=== PATIENT | female | born 1985 | race Caucasian/White ===

== ENCOUNTER → 2020-06-20 15:37 | Outpatient (CLI) | payer OTHER, SELFPAY ==
--- NOTE | 2020-06-20 15:41 | DI.MRI.S_ITS ---
PROCEDURE: MR CERVICAL SPINE WO CON INDICATIONS: Right sided neck and shoulder pain TECHNIQUE: Noncontrast sagittal T1 spin echo and T2 fast spin echo, sagittal STIR, foraminal oblique sagittal T2 fast spin echo, and axial gradient echo or T2 fast spin echo through the cervical spine. COMPARISON: None. FINDINGS: Image quality: Excellent. Alignment and Curvature: There is slight reversal of normal cervical curvature with apex at C5-6. Bone Marrow: Marrow demonstrates normal overall signal. There is a mild appearance of increased T1 signal at C6 suggestive of small hemangioma. Spinal Cord: Visualized spinal cord has normal size and signal. No cerebellar tonsillar herniation. Paraspinous Soft Tissues: No paravertebral masses. Prevertebral soft tissues are normal in thickness. Discs: Moderate to severe disc desiccation is present from C4-5 through C6-7. C2-C3: Minimal disc bulge without spinal stenosis or foraminal narrowing. C3-C4: Minimal disc bulge without spinal stenosis or foraminal narrowing. C4-C5: Mild disc bulge with moderate spinal stenosis. No foraminal narrowing. C5-C6: Mild disc bulge with superimposed posterior central protrusion. There is severe spinal stenosis with compression of the canal. Mild bilateral foraminal narrowing. C6-C7: Mild disc bulge with severe spinal stenosis and canal compression. There is a right asymmetric component of the disc bulge causing compromise of the right lateral recess and proximal right foramina. Overall mild to moderate right and mild left foraminal narrowing is present. C7-T1: No disc bulge, spinal stenosis or foraminal narrowing. IMPRESSION: 1. Multilevel degenerative changes most severe at C5-6 and C6-7 demonstrating disc bulges with severe spinal stenosis. Dictated by: Asia Mccabe M.D. on 06/20/2020 at 16:49 Approved by: Asia Mccabe M.D. on 06/20/2020 at 17:16
--- NOTE | 2020-06-20 15:41 | DI.MRI.S_ITS ---
PROCEDURE: MR LUMBAR SPINE WO CON INDICATIONS: Right sided low back pain TECHNIQUE: Noncontrast sagittal T1 spin echo and T2 fast echo, sagittal STIR, axial T1 and T2 fast spin echo through the lumbar spine. In cases with scoliosis, additional coronal T2 fast spin echo may be performed. COMPARISON: None. FINDINGS: Normal lumbar vertebral body height and alignment. No suspicious focal marrow signal abnormality. Discogenic marrow edema at the opposing L3-L4 endplates. Periarticular marrow edema in association with facet osteoarthropathy from L3-L4 through L5-S1. Normal position and appearance of the conus. Prevertebral and paraspinous soft tissues are within normal limits. The included unenhanced retroperitoneal visceral structures demonstrate no acute abnormality. Throughout the lumbar spine there is congenital shortening of the pedicles. This produces a baseline AP narrowing of the neural foramina and spinal canal at each level, exacerbating the mass effect due to superimposed degenerative changes. T12-L1: No spinal canal or neural foraminal stenosis. L1-L2: Disc bulge flattens the ventral thecal sac. Disc material abuts and may slightly displace the descending right L2 nerve root within the right subarticular zone. Foraminal components of the disc bulge and facet hypertrophy produce mild neural foraminal narrowing in conjunction with congenital shortening of the pedicles. L2-L3: Diffuse disc bulge and a superimposed broad-based posterior disc protrusion. Facet hypertrophy and buckling of the ligamentum flavum. These factors combined with congenital shortening of the pedicles to produce moderate spinal canal and bilateral neural foraminal stenosis. L3-L4: Diffuse disc bulge and a superimposed broad-based posterior disc protrusion with displacement of the descending L4 nerve roots in both subarticular zones. Bulky facet hypertrophy and buckling of the ligamentum flavum. These factors combine to produce moderate right and mild left neural foraminal stenosis. L4-L5: Probable impingement upon the descending right L5 nerve root within the right subarticular zone (series 8, image 14) due to disc bulge and superimposed extrusion. Moderate right and mild left neural foraminal stenosis due to spondylitic and spinal arthropathic changes. L5-S1: Disc bulge without significant mass effect upon the S1 nerve roots. No neural foraminal stenosis. IMPRESSION: Multilevel multifactorial degenerative changes. Suspected impingement of the descending right L5 nerve roots at the L4-L5 level. Moderate spinal canal stenosis and neural foraminal stenosis at L2-L3. 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 Dictated by: Federico Clark M.D. on 06/21/2020 at 9:35 Approved by: Federico Clark M.D. on 06/21/2020 at 9:48
== END ==
PROVIDERS: PCP Family Medicine; Referring Provider Family Medicine; Visit Provider Family Medicine
DX: M50.122 Cervical disc disorder at C5-C6 level with radiculopathy (principal); M48.02 Spinal stenosis, cervical region; M25.511 Pain in right shoulder; M47.26 Other spondylosis with radiculopathy, lumbar region; M48.061 Spinal stenosis, lumbar region without neurogenic claudication
CPT/HCPCS: 72141; 72148

== ENCOUNTER 2020-10-04 15:37 | Emergency (ER) | payer OTHER, SELFPAY ==
[2020-10-04 15:47] VITALS: BP 188/99; PULSE 61; RESP 16; TEMP 36.4; O2SAT 97; BMI 29.0
--- NOTE | 2020-10-04 16:01 | DI.CT.S_ITS ---
PROCEDURE: CT CERVICAL SPINE WO CON INDICATIONS: injury s/p cervical neck surgery TECHNIQUE: Noncontrast 3 mm thick sections acquired from the skull base to the T4 level. Sagittal and coronal reformats were then constructed. For radiation dose reduction, the following was used: automated exposure control, adjustment of mA and/or kV according to patient size. COMPARISON: [facility], , MR CERVICAL SPINE WO CON, 06/20/2020, 16:03. FINDINGS: Image quality: Excellent. Bones: No fractures or dislocations. Visualized superior ribs are intact. Prosthetic discs are noted at C5-6 and C6-7. Hardware is intact. It is noted that the prosthetic disc at C5-6 extends beyond the margin of the superior endplate at C6 by 4 mm and 2 mm at C6-7. No priors are available for comparison. There is overall straightening of normal cervical curvature. Soft tissues: Prevertebral soft tissues are normal in thickness. No paravertebral hematomas. No apical pneumothoraces. IMPRESSION: 1. Postsurgical changes as above. 2. No visualized acute osseous abnormality. Dictated by: Asia Mccabe M.D. on 10/04/2020 at 16:23 Approved by: Asia Mccabe M.D. on 10/04/2020 at 16:27
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
[2020-10-04 18:32] VITALS: BP 156/88; PULSE 65; RESP 18
== END 2020-10-04 19:00 | disposition home or self-care (01) ==
PROVIDERS: Emergency Provider Emergency Medicine; PCP Family Medicine
DX: S16.1XXA Strain of muscle, fascia and tendon at neck level, initial encounter (principal); V89.2XXA Person injured in unspecified motor-vehicle accident, traffic, initial encounter
CPT/HCPCS: 72125; 99283; 99284

== ENCOUNTER → 2020-12-05 09:43 | Outpatient (CLI) | payer OTHER, SELFPAY ==
--- NOTE | 2020-12-05 | DI.RAD.S_ITS ---
PROCEDURE: XR CERVICAL SPINE 2V OR 3V INDICATIONS: radiculopathy, cervical region TECHNIQUE: 3 view(s) of the cervical spine were acquired. COMPARISON: [facility], CT, CT CERVICAL SPINE WO [facility], 10/04/2020, 16:08. [facility], MR, MR CERVICAL SPINE WO [facility], 06/20/2020, 16:03. FINDINGS: Bones: No fractures or dislocations to the T1 level. The lateral masses of C1 appear intact on the odontoid view. No suspicious bony lesions. Loss of lordosis which could be related to muscle spasm, rigidity or simply positional. Prosthetic intervertebral disc spacers again seen at the C5-C6 and C6-C7 levels and it is again noted at the prosthetic spacer at the C5-6 level extends beyond the margin of the superior endplate of C6 by roughly 4 mm and 3 mm at the C6-C7 level. Findings appear similar to prior CT scan dated 10/04/2020. Soft tissues: No prevertebral soft tissue swelling. IMPRESSION: 1. Loss of lordosis. 2. Postsurgical changes as above. Dictated by: Esau Tyler [facility] Interpreted: Demetrius Reis MD on 12/05/2020 at 10:13 Transcribed by: FOSTER on 12/05/2020 at 10:19 Approved by: Reynaldo Rivas M.D. on 12/06/2020 at 13:35
== END ==
PROVIDERS: PCP Family Medicine; Referring Provider Family Medicine; Visit Provider Orthopaedic Surgery
DX: M54.12 Radiculopathy, cervical region (principal)
CPT/HCPCS: 72040

== ENCOUNTER → 2021-03-30 17:34 | Outpatient (CLI) | payer OTHER, SELFPAY ==
--- NOTE | 2021-03-30 | DI.MRI.S_ITS ---
PROCEDURE: MR CERVICAL SPINE WO CON INDICATIONS: spinal stenosis, cervical region TECHNIQUE: Noncontrast sagittal T1 spin echo and T2 fast spin echo, sagittal STIR, foraminal oblique sagittal T2 fast spin echo, and axial gradient echo or T2 fast spin echo through the cervical spine. COMPARISON: [facility], MR, MR CERVICAL SPINE WO CON, 06/20/2020, 16:03. [facility], CR, XR CERVICAL SPINE 2V OR 3V, 12/05/2020, 9:50. [facility], CT, CT CERVICAL SPINE WO CON, 10/04/2020, 16:08. FINDINGS: Postsurgical changes of disc replacement at C5-C6 and C6-C7. The hardware is not ideally evaluated with MRI due to susceptibility artifact. Nonetheless, the inferred position of the hardware due to the presence of the created signal is suggestive that the hardware has migrated anteriorly when compared with the prior study at both the C5-C6 and C6-C7 levels. Straightening of the usual cervical lordosis with otherwise normal alignment. Vertebral body heights maintained. No marrow edema or suspicious focal marrow signal abnormality. There is increased T2 signal of the cord at the C5-C6 and C6-C7 levels (series 5, image 8 for example). The findings are new when compared with 06/20/2020 study. Otherwise normal cord signal. There is no syrinx. There is fluid in the prevertebral soft tissues seen best on sagittal T2 and fat suppressed images. Posterior paraspinous soft tissues are normal. C2-C3: No spinal canal or neural foraminal stenosis. C3-C4: No spinal canal or neural foraminal stenosis. C4-C5: Moderate spinal canal stenosis due to posterior disc osteophyte complex. Flattening of the ventral cord and posterior displacement of the cord with near complete effacement of CSF surrounding the cord. No cord signal abnormality. Mild bilateral neural foraminal narrowing. C5-C6: Moderate to severe spinal canal stenosis with flattening of both the ventral and dorsal cord contours and near complete effacement of CSF surrounding the cord. Associated cord signal abnormality. Moderate bilateral neural foraminal stenosis. C6-C7: Severe spinal canal stenosis with flattening of the ventral and dorsal cord contours and near complete effacement of CSF surrounding the cord. Associated cord signal abnormality. Moderate bilateral neural foraminal stenosis. C7-T1: No spinal canal or or neural foraminal stenosis. IMPRESSION: Limited evaluation the hardware due to susceptibility artifact. Within this limitation, suggestion of possible hardware migration when compared with October 04, 2020 and 12/05/2020 examinations. A follow-up CT to better evaluate the hardware is recommended. 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 Moderate spinal canal stenosis at C4-C5. Varying degrees of neural foraminal stenosis up to moderate. Dictated by: Federico Clark M.D. on 04/01/2021 at 10:34 Approved by: Federico Clark M.D. on 04/01/2021 at 10:42
== END ==
PROVIDERS: PCP Family Medicine; Referring Provider Family Medicine; Visit Provider Family Medicine
DX: M48.02 Spinal stenosis, cervical region (principal); M54.12 Radiculopathy, cervical region; R42 Dizziness and giddiness; Z98.890 Other specified postprocedural states
CPT/HCPCS: 72141

== ENCOUNTER → 2021-12-16 09:08 | Outpatient (CLI) | payer OTHER, SELFPAY ==
--- NOTE | 2021-12-16 09:10 | DI.MRI.S_ITS ---
PROCEDURE: MR LUMBAR SPINE WO CON INDICATIONS: spinal stenosis/radiculopathy/hx of spinal surgery TECHNIQUE: Noncontrast sagittal T1 spin echo and T2 fast echo, sagittal STIR, and T2 fast spin echo through the lumbar spine. In cases with scoliosis, additional coronal T2 fast spin echo may be performed. COMPARISON: [facility], MR, MR LUMBAR SPINE WO CON, 06/20/2020, 16:30. FINDINGS: Image quality: Excellent. Alignment and Curvature: There is normal bony alignment. Bone Marrow: Marrow is of normal overall signal. No acute vertebral body compression fractures. Spinal Cord: Conus medullaris terminates at the L1 level. Visualized cord demonstrates normal signal and size. Paraspinous Soft Tissues: No paravertebral masses. T12-L1: No significant disc bulge. The foramina and central canal are patent. L1-L2: No significant disc bulge. The foramina and central canal are patent. L2-L3: The disc is narrowed and desiccated. There is a diffuse disc bulge and facet hypertrophy causing mild right and moderate left foraminal stenosis. The central canal has moderate stenosis. L3-L4: The disc is narrowed and desiccated. There is a diffuse disc bulge and facet hypertrophy which causes severe right and moderate left foraminal stenosis. The central canal has mild stenosis. L4-L5: The disc is narrowed and desiccated. There is a diffuse disc bulge and facet hypertrophy which causes severe right and moderate left foraminal stenosis. The central canal has mild stenosis. L5-S1: No significant disc bulge. The foramina and central canal are patent. IMPRESSION: 1. Multilevel lumbar spondylosis causing foraminal and central canal stenosis as detailed above. 2. No abnormal cord signal. Dictated by: Jomar Reis M.D. on 12/17/2021 at 8:28 Approved by: Jomar Reis M.D. on 12/17/2021 at 8:33
--- NOTE | 2021-12-16 09:10 | DI.MRI.S_ITS ---
PROCEDURE: MR THORACIC SPINE WO CON INDICATIONS: spinal stenosis/radiculopathy/hx of spinal surgery TECHNIQUE: Noncontrast sagittal T1 spine echo and T2 fast spin echo, sagittal STIR, and T2 fast spin echo through the thoracic spine. COMPARISON: None. FINDINGS: Image quality: Excellent. Alignment and Curvature: There is normal bony alignment. Bone Marrow: Marrow is of normal overall signal. No acute vertebral body compression fractures. Spinal Cord: Visualized spinal cord is normal in size and signal. Discs: T2-3 has a right foraminal protrusion causing moderate right foraminal stenosis. T4-5 and T6-7 have diffuse disc bulges with no foraminal or central canal stenosis. T10-11 and T11-12 have facet hypertrophy causing mild and moderate bilateral foraminal stenosis, respectively. Paraspinous Soft Tissues: No paravertebral masses. Miscellaneous: On axial images, central canal and foramina appear widely patent at all scanned levels. IMPRESSION: 1. Multilevel thoracic spondylosis with foraminal stenosis as detailed above. 2. No significant central canal stenosis. 3. No abnormal cord signal. Dictated by: Jomar Reis M.D. on 12/17/2021 at 7:57 Approved by: Jomar Reis M.D. on 12/17/2021 at 8:17
--- NOTE | 2021-12-16 09:11 | DI.MRI.S_ITS ---
PROCEDURE: MR CERVICAL SPINE WO CON INDICATIONS: spinal stenosis/radiculopathy/hx of spinal surgery TECHNIQUE: Noncontrast sagittal T1 spin echo and T2 fast spin echo, sagittal STIR, foraminal oblique sagittal T2 fast spin echo, and axial gradient echo or T2 fast spin echo through the cervical spine. COMPARISON: [facility], MR, MR CERVICAL SPINE WO CON, 03/30/2021, 17:59. FINDINGS: Image quality: Excellent. Alignment and Curvature: There is normal bony alignment. Bone: Postoperative changes of ACDF of C5 through C7. Hardware is not well evaluated with MRI due to susceptibility artifact. No marrow edema. Spinal Cord: No abnormal cord signal identified. Previously described increased T2 signal at the levels of C5-6 and C6-7 is not seen on the current MRI. There is no syrinx. Paraspinous Soft Tissues: No paravertebral masses. Prevertebral soft tissues are normal in thickness. Previously described fluid in the prevertebral soft tissues is not seen on the current MRI. C2-C3: No significant disc bulge. The foramina and central canal are patent. C3-C4: No significant disc bulge. The foramina and central canal are patent. C4-C5: The disc is desiccated with a diffuse disc bulge and disc osteophyte complex causing flattening of the ventral cord with mild central canal stenosis, however hardware artifact limits evaluation. There is mild bilateral foraminal stenosis. C5-C6: Limited evaluation due to susceptibility artifact. Sagittal T2 images suggest mild central canal stenosis. C6-C7: Limited evaluation due to susceptibility artifact. Sagittal T2 images suggest mild central canal stenosis. C7-T1: No significant disc bulge. The foramina and central canal are patent. IMPRESSION: 1. Postoperative changes of ACDF from C5 through C7. Limited evaluation due to susceptibility artifact due to metallic hardware. 2. No abnormal cord signal. Suspected myelopathy seen on the prior MRI on 04/01/2021 is not appreciated on this MRI. Dictated by: Jomar Reis M.D. on 12/17/2021 at 8:17 Approved by: Jomar Reis M.D. on 12/17/2021 at 8:27
== END ==
PROVIDERS: PCP Family Medicine; Referring Provider Family Medicine; Visit Provider Family Medicine
DX: M47.24 Other spondylosis with radiculopathy, thoracic region (principal); M47.26 Other spondylosis with radiculopathy, lumbar region; M48.061 Spinal stenosis, lumbar region without neurogenic claudication; M54.12 Radiculopathy, cervical region; Z98.890 Other specified postprocedural states; Z98.1 Arthrodesis status
CPT/HCPCS: 72141; 72146; 72148

== ENCOUNTER 2022-02-28 08:13 | Emergency (ER) | payer OTHER, SELFPAY ==
[2022-02-28 08:25] VITALS: BP 141/89; PULSE 67; RESP 22; TEMP 37.2; O2SAT 99; BMI 31.3
--- NOTE | 2022-02-28 08:50 | ED.SOB ---
HPI - SOB/Dyspnea General Chief Complaint: Shortness of Breath/Dyspnea Stated Complaint: suspect I have RSV, congestion, SOB, weak Time Seen by Provider: 02/28/22 08:30 Source: patient Mode of arrival: Ambulatory Limitations: no limitations History of Present Illness HPI Narrative: This is a 36-year-old female with history of cervical diskectomy and migraines. She has had nasal congestion, cough, chest discomfort and intermittent nausea along with headache and muscle aches since the 24 of February. Patient states no fevers but she is been taking Tylenol regularly. Patient states they have had known sick contacts for RSV recently. Patient states she is on a new medication for blood pressure that is only been on board for about a month. She states she does have headaches but while the intensity is the same she does not have the typical photophobia. She presents with her significant other as well as child today with similar symptoms. Related Data Previous Rx's Medication Instructions Recorded cyclobenzaprine 10 mg tablet 10 mg PO TID PRN muscle spasm #14 10/04/20 tabs methylprednisolone 4 mg tablets in See Rx Instructions PO .COMPLEX 10/04/20 a dose pack (Medrol (Colin)) #21 ea ondansetron 4 mg disintegrating 4 mg PO Q6H PRN nausea and 02/28/22 tablet vomiting #10 tabs Allergies Allergy/AdvReac Type Severity Reaction Status Date / Time No Known Drug Allergies Allergy Verified 02/28/22 10:37 Review of Systems Review of Systems ROS Unobtainable: All systems reviewed & are unremarkable except as noted in HPI and below Patient History Social History Smoking Status: Never smoker Smoking Status: Never smoker Substance Use Type: marijuana Exam Narrative Exam Narrative: GEN: well nourished, well appearing female, alert and oriented x 3, patient appears to be in mild distress. HEENT: Atraumatic, pupils are equal round reactive to light, extraocular movements are intact, nares are clear, TMs are clear with no fluid, there is no conjunctival pallor. Throat is clear without any exudates, erythema, tonsillar enlargement or uvular deviation HEART: Regular rate and rhythm without murmur, clicks, rubs. LUNGS:Lungs clear to auscultation, no wheezes, rales, crackles, chest moves symmetrically ABD:bowel sounds normal, soft, non-tender, no guarding, rebound, rigidity, no masses noted, no hepatosplenomegaly MSCL: Non-tender, no muscle atrophy, muscles strength 5/5 upper and lower extremities, full range of motion, normal gait NEURO:CN 2-12 intact, sensation normal SKIN: No rash, erythema, or skin changes. Initial Vital Signs Initial Vital Signs: Vital Signs Temperature 99.0 F 02/28/22 08:25 Pulse Rate 67 02/28/22 08:25 Respiratory Rate 22 02/28/22 08:25 Blood Pressure 141/89 H 02/28/22 08:25 Pulse Oximetry 99 02/28/22 08:25 Oxygen Delivery Method 02/28/22 08:25 Course Orders Ordered: Discontinued Medications Ketorolac Tromethamine (Ketorolac 30 Mg/Ml Vial) 30 mg IM NOW ONE Stop: 02/28/22 10:23 Last Admin: 02/28/22 10:38 Dose: 30 mg Documented By: CYNTHIA Vital Signs Vital signs: Vital Signs - 8 hr 02/28/22 08:25 Temperature 99.0 F Pulse Rate 67 Respiratory Rate 22 Blood Pressure 141/89 H Pulse Oximetry 99 Oxygen Delivery Method Room Air MDM - SOB/Dyspnea Lab Data Labs: Lab Results 02/28/22 Range/Units 08:26 SARS-CoV-2 (PCR) Negative (Negative) Influenza A (RT-PCR) Flu a positive H (NEGATIVE) Influenza B (RT-PCR) Flu b negative (NEGATIVE) RSV (PCR) Negative (Negative) Imaging Data Chest x-ray: Radiologist's Impression: [address] [address] XRay Report Signed Patient: Kelly Jorgensen MR#: [id number] : 1985 Acct:[id number] Age/Sex: 36 / F Date of Service: 02/28/22 Loc: ED Accession Number: [id number] ?? Procedure: XR chest 2V Ordering Provider: Laila Davis D.O. PROCEDURE:? XR CHEST 2V ? INDICATIONS:? sob, chest pain, uri symptoms ? TECHNIQUE:? 2 views of the chest were acquired.? ? COMPARISON:? None. ? FINDINGS:? ? Surgical changes and devices:? Postsurgical changes in the lower cervical spine.? ? Lungs and pleura:? Lungs are clear.? No pleural effusions or pneumothorax.? ? Mediastinum:? Mediastinal contours are normal.? Heart size is normal.? ? Bones and chest wall:? No suspicious bony abnormalities.? Soft tissues appear unremarkable.? ? IMPRESSION:? No acute cardiopulmonary disease. ? ? Dictated by: Jannette Stafford M.D. on 02/28/2022 at 9:24 ? ? Approved by: Jannette Stafford M.D. on 02/28/2022 at 9:24?? MDM Narrative Medical decision making narrative: This is a 36-year-old female with 4 days viral symptoms. Patient had 4 Plex testing which is positive for influenza A. She is outside the window for Tamiflu. Plan for Zofran as needed. Toradol IM here she has headache and ibuprofen Tylenol as needed at home. Return precautions discussed. Patient was having some chest discomfort and shortness of breath chest x-ray is negative, vitals and exam do not prompt me to perform additional workup at this time. Discharge Plan Departure Patient Disposition: Home Clinical Impression: Influenza A Instructions: DI for Viral Upper Respiratory Infection -- Adult Activity Restrictions/Additional Instructions: I hope you and your family continued to feel improved over the next week. You have tested positive for influenza A today. You can continue with Tylenol and/or ibuprofen as needed. You may take 1 tablet of Zofran every 6 hours as needed for nausea or vomiting. Prescription sent to [facility] in [place] Please return for migraines, increasing chest pain, shortness of breath, difficulty breathing, persistent vomiting or other new or concerning changes. Prescriptions: New ondansetron 4 mg tablet,disintegrating 4 mg PO Q6H PRN (Reason: nausea and vomiting) Qty: 10 0RF No Action cyclobenzaprine 10 mg tablet 10 mg PO TID PRN (Reason: muscle spasm) Qty: 14 0RF methylprednisolone [Medrol (Colin)] 4 mg tablets,dose pack See Rx Instructions .ROUTE .COMPLEX Qty: 21 0RF Rx Instructions: orally per package directions Referrals: Betty Marin DO [Primary Care Provider] - Visit Report Forms: Patient Portal/API
--- NOTE | 2022-02-28 09:06 | DI.RAD.S_ITS ---
PROCEDURE: XR CHEST 2V INDICATIONS: sob, chest pain, uri symptoms TECHNIQUE: 2 views of the chest were acquired. COMPARISON: None. FINDINGS: Surgical changes and devices: Postsurgical changes in the lower cervical spine. Lungs and pleura: Lungs are clear. No pleural effusions or pneumothorax. Mediastinum: Mediastinal contours are normal. Heart size is normal. Bones and chest wall: No suspicious bony abnormalities. Soft tissues appear unremarkable. IMPRESSION: No acute cardiopulmonary disease. Dictated by: Jannette Stafford M.D. on 02/28/2022 at 9:24 Approved by: Jannette Stafford M.D. on 02/28/2022 at 9:24
[2022-02-28 09:27] LABS: Influenza A - CEPHEID Flu A POSITIVE (NEGATIVE); Influenza B - CEPHEID Flu B NEGATIVE (NEGATIVE); Respiratory Syncytial Virus Negative (Negative)
[2022-02-28 09:52] LABS: COVID-19 CEPHEID 4-PLEX PCR Negative (Negative)
[2022-02-28] MEDS: KETOROLAC 30 MG/ML VIAL IM (10:38)
== END 2022-02-28 10:52 | disposition home or self-care (01) ==
PROVIDERS: Emergency Provider Emergency Medicine; PCP Family Medicine
DX: J09.X2 Influenza due to identified novel influenza A virus with other respiratory manifestations (principal)
CPT/HCPCS: 0241U; 71046; 96372; 99283; J1885

== ENCOUNTER 2023-07-05 11:49 | Emergency (ER) | payer OTHER, SELFPAY ==
[2023-07-05 11:52] VITALS: BP 201/112; PULSE 60; RESP 14; TEMP 36.6; O2SAT 100; BMI 31.3
--- NOTE | 2023-07-05 12:05 | ED_ITS ---
HPI - Headache General Chief Complaint: Back Pain/Injury Stated Complaint: spinal pain/ headach/ dizzy/ increasing pain Time Seen by Provider: 07/05/23 12:02 History of Present Illness HPI Narrative: Patient is a 38-year-old history of cervical ACDF C5 through C7, was multiple disc bulges throughout her spine. She had surgery in 2020. She presents to day with 4 days of increasing neck pain and arm weakness. She reports that she has been dropping things. She has no loss of urine or stool. She has medication at home to take but she has not taken any event. She is methocarbamol which she says does not really help she has not tried Tylenol or ibuprofen. She has previously had tramadol she says it does not help along with gabapentin. She does not like taking narcotics. She is trying to be functional. However she is continuing to be dizzy have headaches along with increasing weakness which are the same symptoms she had when she had severe spinal stenosis and went to surgery. She denies any fever. Related Data Previous Rx's Medication Instructions Recorded cyclobenzaprine 10 mg tablet 10 mg PO TID PRN muscle spasm #14 10/04/20 tabs methylprednisolone 4 mg tablets in See Rx Instructions PO .COMPLEX 10/04/20 a dose pack (Medrol (Colin)) #21 ea ondansetron 4 mg disintegrating 4 mg PO Q6H PRN nausea and 02/28/22 tablet vomiting #10 tabs hydrocodone 5 mg-acetaminophen 325 1 tab PO Q6H PRN pain #10 tabs 07/05/23 mg tablet prednisone 20 mg tablet 40 mg (2 x 20 mg) PO DAILY #10 tabs 07/05/23 Allergies Allergy/AdvReac Type Severity Reaction Status Date / Time No Known Drug Allergies Allergy Verified 07/05/23 12:00 Patient History Social History Smoking Status: Never smoker Smoking Status: Never smoker Substance Use Type: marijuana Exam Initial Vital Signs Initial Vital Signs: Vital Signs Temperature 97.8 F 07/05/23 11:52 Pulse Rate 60 07/05/23 11:52 Respiratory Rate 14 07/05/23 11:52 Blood Pressure 201/112 H 07/05/23 11:52 Pulse Oximetry 100 07/05/23 11:52 Oxygen Delivery Method Room Air 07/05/23 11:52 GENERAL: Alert slightly anxious 2-year-old female NECK: No vertebral tenderness she is tender left paraspinal muscles CARDIOVASCULAR: peripheral pulses in tact, cap refill <2 sec RESPIRATORY: No respiratory distress, speaks in full sentences without difficulty EXTREMITIES: Normal range of motion, no clubbing or edema. Neurovascularly intact NEUROLOGICAL: Cranial nerves II through XII grossly intact. Normal gait and speech. [employer] strength equal bilaterally VS weakness numbness SKIN: Warm, dry, no petechiae, no rashes or lesions. Course Orders Ordered: ED Orders 07/05/23 12:29 MR cervical spine wo con Stat Discontinued Medications Ketorolac Tromethamine (Ketorolac 30 Mg/Ml Vial) 30 mg IM NOW ONE Stop: 07/05/23 12:23 Last Admin: 07/05/23 12:30 Dose: 30 mg Documented By: ROSALBA Vital Signs Vital signs: Vital Signs - 8 hr 07/05/23 11:52 Temperature 97.8 F Pulse Rate 60 Respiratory Rate 14 Blood Pressure 201/112 H Pulse Oximetry 100 Oxygen Delivery Method Room Air MDM - Headache Imaging Data MR cervical: Radiologist's Impression: PROCEDURE: MR CERVICAL SPINE WO CON INDICATIONS: dropping things, prior surgery TECHNIQUE: Noncontrast sagittal T1 spin echo and T2 fast spin echo, sagittal STIR, foraminal oblique sagittal T2 fast spin echo, and axial gradient echo or T2 fast spin echo through the cervical spine. COMPARISON: [facility], , MR CERVICAL SPINE WO CON, 12/16/2021, 9:29. FINDINGS: Image quality: Susceptibility artifact from ACDF hardware in the lower cervical spine Alignment and Curvature: Status post ACDF of C5 -C7. Position of hardware is not well evaluated on MRI, but appears not significantly changed since prior MRI. No bone marrow edema. Straightening of the normal cervical lordosis. Bone Marrow: Marrow demonstrates normal overall signal. Spinal Cord: There is mildly increased T2 signal of the cord at the level of the hardware at C5-C6 and C6-C7, which was previously seen on MRI 03/30/2021 and not significantly changed given differences in technique/positioning. Remainder of the cord is normal signal. No syrinx. Paraspinous Soft Tissues: No paravertebral masses. Prevertebral soft tissues are normal in thickness. At C4-C5, posterior disc osteophyte complex resulting in mild effacement of the CSF. Mild bilateral neural foraminal narrowing. At C5-C6, there is moderate to severe spinal canal stenosis with effacement of the CSF surrounding the cord with associated cord signal abnormality. Moderate bilateral neural foraminal stenosis. At C6-C7, there is moderate to severe spinal canal stenosis with effacement of the CSF and associated signal cord abnormality. Moderate bilateral foraminal stenosis. No significant spinal canal or neural foraminal stenosis at the other levels. IMPRESSION: Status post ACDF at C5-C6 and C6-C7. Limited evaluation of hardware due to susceptibility artifact. Moderate to severe spinal canal stenosis with effacement of the CSF at C5-C6 and C6-C7 with associated increased T2 hyperintense cord signal at those levels which may reflect myelopathy. Findings are similar compared to prior MRI 03/30/2021. MDM Narrative Medical decision making narrative: Patient 38-year-old female with history of ACDF C5-C6 and C6-C7 presenting today with increasing weakness worsening pain over last couple of days. She has been dropping some things. She is afebrile. She is good strength on exam. MRI does show T2 hyperintense cord signal at those levels which may reflect myelopathy findings similar to prior MRI 03/30/2021, MRI in 2021 did not show myelopathy 14:45 Dr. Hernandez on-call orthopedic updated on patient's MRI results and history. Recommend that patient be seen I spinal surgeon urgently but not emergently. Says that this may continue to progress. Patient previously had surgery at [facility] and she would like to go back there. Seems reasonable. Discharge Plan Departure Patient Disposition: Home Clinical Impression: Myelopathy Instructions: Cervical Myelopathy Activity Restrictions/Additional Instructions: *You have been diagnosed with cervical myelopathy *What to do: At this time your MRI does show probable myelopathy. Your MRI in 2020 showed the same however MRI in 2021 did not show this. I do encourage you to follow-up with your spinal surgeon. If your symptoms are worsening please return to emergency department *Continue to take medications as directed Prednisone 40 mg once a day for 5 [place] 1 tablet every 6 hours if needed for severe pain *Follow up with your primary care provider in 2-3 days or call [phone] *Return to ER if you should have increasing weakness dropping things numbness tingling or any new, worsening or concerning symptoms CONTROLLED SUBSTANCE DISCHARGE (Narcotoic/benzodiazepine/Flexeril/Phenergan) 1. You have been prescribed narcotic medications, it does have acetaminophen/Tylenol/paracetamol in it, DO NOT TAKE MORE THAN 4,00mg in 24 hours of Tylenol. TRAMADOL DOES NOT CONTAIN TYLENOL 2. Please understand that we cannot provide further refills of narcotics, benzodiazepines or controlled substances through the ED and her pain management will need to be through your provider. 3. While on these medications you cannot drive or operate heavy machinery. 4. You cannot sign legal documents or perform any duties such as this. 5. As long as you're taking opiate pain medications he should also be taking a stool softener such as Colace, Dulcolax, MiraLAX or prune juice, to help avoid constipation. Prescriptions: New hydrocodone-acetaminophen 5-325 mg tablet 1 tab PO Q6H PRN (Reason: pain) Qty: 10 0RF prednisone 20 mg tablet 40 mg PO DAILY Qty: 10 0RF No Action cyclobenzaprine 10 mg tablet 10 mg PO TID PRN (Reason: muscle spasm) Qty: 14 0RF methylprednisolone [Medrol (Colin)] 4 mg tablets,dose pack See Rx Instructions .ROUTE .COMPLEX Qty: 21 0RF Rx Instructions: orally per package directions ondansetron 4 mg tablet,disintegrating 4 mg PO Q6H PRN (Reason: nausea and vomiting) Qty: 10 0RF Referrals: Betty Marin DO [Primary Care Provider] - Stand Alone Forms: Patient Portal/API
--- NOTE | 2023-07-05 12:29 | DI.MRI.S_ITS ---
PROCEDURE: MR CERVICAL SPINE WO CON INDICATIONS: dropping things, prior surgery TECHNIQUE: Noncontrast sagittal T1 spin echo and T2 fast spin echo, sagittal STIR, foraminal oblique sagittal T2 fast spin echo, and axial gradient echo or T2 fast spin echo through the cervical spine. COMPARISON: [facility], MR, MR CERVICAL SPINE WO CON, 12/16/2021, 9:29. FINDINGS: Image quality: Susceptibility artifact from ACDF hardware in the lower cervical spine Alignment and Curvature: Status post ACDF of C5 -C7. Position of hardware is not well evaluated on MRI, but appears not significantly changed since prior MRI. No bone marrow edema. Straightening of the normal cervical lordosis. Bone Marrow: Marrow demonstrates normal overall signal. Spinal Cord: There is mildly increased T2 signal of the cord at the level of the hardware at C5-C6 and C6-C7, which was previously seen on MRI 03/30/2021 and not significantly changed given differences in technique/positioning. Remainder of the cord is normal signal. No syrinx. Paraspinous Soft Tissues: No paravertebral masses. Prevertebral soft tissues are normal in thickness. At C4-C5, posterior disc osteophyte complex resulting in mild effacement of the CSF. Mild bilateral neural foraminal narrowing. At C5-C6, there is moderate to severe spinal canal stenosis with effacement of the CSF surrounding the cord with associated cord signal abnormality. Moderate bilateral neural foraminal stenosis. At C6-C7, there is moderate to severe spinal canal stenosis with effacement of the CSF and associated signal cord abnormality. Moderate bilateral foraminal stenosis. No significant spinal canal or neural foraminal stenosis at the other levels. IMPRESSION: Status post ACDF at C5-C6 and C6-C7. Limited evaluation of hardware due to susceptibility artifact. Moderate to severe spinal canal stenosis with effacement of the CSF at C5-C6 and C6-C7 with associated increased T2 hyperintense cord signal at those levels which may reflect myelopathy. Findings are similar compared to prior MRI 03/30/2021. Approved by: Freida Allan M.D. on 07/05/2023 at 13:23
[2023-07-05 12:30] VITALS: PULSE 60; RESP 18; O2SAT 98
[2023-07-05] MEDS: KETOROLAC 30 MG/ML VIAL IM (12:30)
[2023-07-05 14:39] VITALS: BP 175/79; PULSE 62; RESP 19; O2SAT 100
== END 2023-07-05 14:55 | disposition home or self-care (01) ==
PROVIDERS: Emergency Provider Emergency Medicine; PCP Family Medicine
DX: G95.9 Disease of spinal cord, unspecified (principal)
CPT/HCPCS: 72141; 96372; 99283; J1885

== ENCOUNTER → 2023-07-25 13:10 | Outpatient (CLI) | payer OTHER, SELFPAY ==
--- NOTE | 2023-07-25 | DI.RAD.S_ITS ---
PROCEDURE: XR CERVICAL SPINE 4V OR 5V INDICATIONS: SPINAL STENOSIS, FLEXION AND EXTENSION TECHNIQUE: 5 views of the cervical spine were acquired. COMPARISON: [facility], CR, XR CERVICAL SPINE 2V OR 3V, 12/05/2020, 9:50. FINDINGS: Bones: No fractures or dislocations to the T1 level. No suspicious bony lesions. Remote disc prosthesis placement at C5-C6 and C6-C7. No evidence of hardware failure or loosening. There is normal range of motion between flexion and extension, with preserved normal bony alignment. Soft tissues: Prevertebral soft tissues are normal in thickness. IMPRESSION: 1. Remote disc prosthesis placement at C5-C6 and C6-C7. 2. Normal range of motion with no abnormal motion on flexion and extension. Comment: Final report is concordant with preliminary interpretation provided by [facility]. Dictated by: Osmani Centeno M.D. on 07/25/2023 at 14:35 Approved by: Osmani Centeno M.D. on 07/25/2023 at 14:38
--- NOTE | 2023-07-25 13:15 | DI.CT.S_ITS ---
PROCEDURE: CT CERVICAL SPINE WO CON INDICATIONS: Spinal stenosis, cervical region TECHNIQUE: Noncontrast 3 mm thick sections acquired from the skull base to the T4 level. Sagittal and coronal reformats were then constructed. For radiation dose reduction, the following was used: automated exposure control, adjustment of mA and/or kV according to patient size. COMPARISON: [facility], CT, CT CERVICAL SPINE WO CON, 10/04/2020, 16:08. FINDINGS: Image quality: Excellent. Bones: No fractures or dislocations. Visualized superior ribs are intact. Again noted is the presence of disc prostheses C5-C6 and C6-C7, unchanged in position. C2-C3: No canal stenosis or foraminal stenosis. C3-C4: No canal stenosis or foraminal stenosis. C4-C5: Disc bulge. Bilateral uncovertebral joint hypertrophy. Mild canal stenosis. Mild bilateral bony foraminal narrowing. C5-C6: Diffuse posterior disc bulge with superimposed central posterior disc protrusion with peripheral calcification. Moderate to severe canal stenosis. Prominent bilateral uncovertebral joint hypertrophy. At least moderate right foraminal narrowing and mild to moderate left foraminal narrowing. C6-C7. Posterior disc plus osteophyte. [id number] canal stenosis. Bilateral uncovertebral joint hypertrophy. At least moderate right foraminal narrowing. Soft tissues: Prevertebral soft tissues are normal in thickness. No paravertebral hematomas. No apical pneumothoraces. IMPRESSION: 1. Remote placement of disc prostheses at C5-C6 and C6-C7. 2. Canal stenosis is mild at C4-C5, moderate to severe at C5-C6, and [id number] at C6-C7. 3. Multilevel uncovertebral joint hypertrophy with at least moderate right foraminal narrowing at C5-C6 and C6-C7. Dictated by: Osmani Centeno M.D. on 07/25/2023 at 14:08 Approved by: Osmani Centeno M.D. on 07/25/2023 at 14:34
== END ==
PROVIDERS: PCP Family Medicine; Referring Provider Orthopaedic Surgery; Visit Provider Orthopaedic Surgery
DX: M48.02 Spinal stenosis, cervical region (principal); M50.222 Other cervical disc displacement at C5-C6 level
CPT/HCPCS: 72050; 72125

== ENCOUNTER → 2024-08-15 09:16 | Outpatient (CLI) | payer OTHER, SELFPAY ==
--- NOTE | 2024-08-15 09:18 | DI.MRI.S_ITS ---
PROCEDURE: MR LUMBAR SPINE WO CON INDICATIONS: LUMBAR RADICULOPATHY TECHNIQUE: Noncontrast sagittal T1 spin echo and T2 fast echo, sagittal STIR, and T2 fast spin echo through the lumbar spine. In cases with scoliosis, additional coronal T2 fast spin echo may be performed. COMPARISON: [facility], MR, MR LUMBAR SPINE WO CON, 12/16/2021, 9:29. FINDINGS: Image quality: Excellent. Alignment and Curvature: There is normal bony alignment. Bone Marrow: Mild degenerative endplate changes, most pronounced at L3-L4. Marrow is of normal overall signal. No acute vertebral body compression fractures. Spinal Cord: Conus medullaris terminates at the L1 level. Visualized cord demonstrates normal signal and size. Paraspinous Soft Tissues: No paravertebral masses. T12-L1: No central canal or neural foraminal stenosis. L1-L2: Facet arthropathy. No central canal or neural foraminal stenosis. L2-L3: Disc desiccation and diffuse disc bulge. Facet arthropathy and thickening of ligamentum flavum. Moderate central canal stenosis. Mild right and moderate left neural foraminal stenosis is stable. L3-L4: Disc desiccation and moderate height loss. Diffuse disc bulge. Facet arthropathy and thickening of ligamentum flavum. Mild central canal stenosis. Moderate bilateral neural foraminal stenosis appears stable compared to prior. L4-L5: Disc desiccation and moderate height loss. Diffuse disc bulge with superimposed small right paracentral disc protrusion. Facet arthropathy. Mild central canal stenosis. Severe right and moderate left neural foraminal stenosis is stable. L5-S1: Facet arthropathy. No central canal or neural foraminal stenosis. IMPRESSION: 1. Multilevel degenerative changes of the lumbar spine as described above, stable compared to prior. 2. Moderate central canal stenosis at L2-L3. 3. Severe right neural foraminal stenosis at L4-5. Multilevel mild and moderate neural foraminal stenosis at other levels. Dictated by: Jose Blanton M.D. on 08/16/2024 at 13:01 Approved by: Jose Blanton M.D. on 08/16/2024 at 13:05
== END ==
PROVIDERS: PCP Family Medicine; Referring Provider Family Medicine; Visit Provider Acupuncturist
DX: M47.26 Other spondylosis with radiculopathy, lumbar region (principal); M47.27 Other spondylosis with radiculopathy, lumbosacral region; M48.061 Spinal stenosis, lumbar region without neurogenic claudication
CPT/HCPCS: 72148